=== PATIENT | female | born 1985 | race Caucasian/White ===

== ENCOUNTER 2020-11-26 05:33 | Emergency (ER) | payer OTHER ==
[~2020-11-26] VITALS: Ht 165.1 cm; Wt 59.9 kg
--- NOTE | 2020-11-26 06:10 | NUR ---
PATIENT BIBS FOR C/O PANIC ATTACK AND INABILITY TO BREATH FOR THE PAST 2-3 HOURS. PATIENT IS A/O X 4, NO SOB NOTED. PATIENT CONNECTED TO MONITORS.
[2020-11-26] MEDS ORDERED: LORAZEPAM 1 MG TABLET ONE (06:26)
[2020-11-26] MEDS ORDERED: LORAZEPAM 1 MG TABLET PO ONE (06:30)
--- NOTE | 2020-11-26 06:51 | NUR ---
PT REPORTS IMPROVEMENT IN ANXIETY AND TREMORS
[2020-11-26 07:09] LABS: BASOPHILS % (AUTO) 0.3 % (0.0-2.0); EOSINOPHILS % (AUTO) 0.2 % (0.0-6.0); HEMATOCRIT 37 % (33-45); HEMOGLOBIN 12.4 g/dL (11.5-14.8); LYMPHOCYTES # (AUTO) 1.5 K/uL (0.8-4.8); LYMPHOCYTES % (AUTO) 15.9 % (20.0-44.0); MEAN CORPUSCULAR HGB CONC 33 g/dl (31.0-36.0); MEAN CORPUSCULAR VOLUME 101 fL (82-100); MONOCYTES # (AUTO) 0.4 K/uL (0.1-1.30); MONOCYTES % (AUTO) 4.1 % (2.0-12.0); NEUTROPHILS # (AUTO) 7.5 K/uL (1.8-8.9); NEUTROPHILS % (AUTO) 79.5 % (43.0-81.0); PLATELET COUNT (AUTO) 325 K/uL (150-450); RED BLOOD CELL COUNT(AUTO) 3.69 MIL/uL (4.0-5.2); WHITE BLOOD COUNT (AUTO) 9.5 K/uL (4.3-11.0)
--- NOTE | 2020-11-26 08:01 | NUR ---
THE PATIENT IS IN ER BED #7. IN ROOM AIR AND DENIES SOB. RESPIRATION REGULAR AND UNLABORED. DENIES PAIN. THE PATIENT DENIES HAVING ANY ANXIETY AT THIS TIME. WILL CONTINUE TO MONITOR THE PATIENT.
[2020-11-26 08:37] LABS: CALCIUM, SERUM 8.4 mg/dL (8.5-10.1); CREATININE 0.7 mg/dL (0.6-1.3); POTASSIUM 3.1 mmol/L (3.5-5.1)
[2020-11-26] MEDS ORDERED: LORA-259 PO (08:44)
[2020-11-26 08:55] VITALS: BP 120/73
--- NOTE | 2020-11-26 08:55 | NUR ---
Patient discharged to home in stable condition. Written and verbal after care instructions given. Patient verbalizes understanding of instruction.
== END 2020-11-26 08:56 | disposition home or self-care (01) ==
LOC: ER 05:49
DX: F41.0 Panic disorder [episodic paroxysmal anxiety] (principal); R00.2 Palpitations; Z60.2 Problems related to living alone; Z79.899 Other long term (current) drug therapy
CPT/HCPCS: 36415; 80048-TC; 84703-TC; 85025-TC